=== PATIENT | female | born 1985 | race Caucasian/White ===

== ENCOUNTER 2020-07-28 21:24 | Emergency (ER) | payer BC, OTHER ==
[~2020-07-28] VITALS: Ht 165.1 cm; Wt 71.8 kg
--- NOTE | 2020-07-28 21:38 | PHYS DOC ---
Past History Past Medical History: No Pertinent History, Anemia Past Medical History History of dysfunctional uterine bleeding Past Surgical History: No Surgical History Alcohol Use: None Drug Use: None General Adult EDM: Chief Complaint: Palpitations HPI: HPI: "..I ve been having palpitations..and rapid heart rate tonight...some chest discomfort..." Patient is a 35 year old female who presents with above hx and complaints of Tachycardia with chest discomfort. Patient denies any excessive caffeine use. No excessive use of [id number]-[id number] decongestants. No history of illicit drug use. No history of previous cardiac disorder. Patient states symptoms really more persistent tonight but did have some symptoms yesterday. Patient has had a past history of anemia and dysfunctional uterine bleeding. No recent travel. No specific ill contacts. No history immunosuppression. Patient has 2 term 2. Patient normally presents to the ED for her health care. There is a history of coagulopathy with her family members. Poorly mother had problems with prolonged beat bleeding with surgeries and dental procedures. Patient denies any use of [id number]-emj-[id number] supplements or health teas. Patient was noted to have sinus tachycardia on monitor 1 20-1 30s upon being placed in the room. No history of hypothyroidism. Review of Systems: Review of Systems: Constitutional: Denies fever or chills Eyes: Denies change in visual acuity HENT: Denies nasal congestion or sore throat Respiratory: Denies cough or shortness of breath Cardiovascular: Complaints of chest discomfort and tachycardia GI: Denies abdominal pain, nausea, vomiting, bloody stools or diarrhea : Denies dysuria Musculoskeletal: Denies back pain or joint pain Integument: Denies rash Neurologic: Denies headache, focal weakness or sensory changes Endocrine: Denies polyuria or polydipsia Lymphatic: Denies swollen glands Psychiatric: Denies depression or anxiety Family History: Family History: Coagulopathy with mother etiology unclear Current Medications: Current Meds: See nursing for home meds Allergies: Allergies: Allergies Coded Allergies Type Severity Reaction Last Updated Verified shellfish derived Allergy Intermediate Hives 07/02/15 Yes shrimp Allergy Intermediate Hives 07/02/15 Yes Physical Exam: PE: Constitutional: Moderate acute distress, non-toxic appearance. [] HENT: Normocephalic, atraumatic, bilateral external ears normal, oropharynx moist, no oral exudates, nose normal. [] Eyes: PERRLA, EOMI, conjunctiva pale, no discharge. [] Neck: Normal range of motion, no tenderness, supple, no stridor. [] Cardiovascular: Tachycardia heart rate regular rhythm, no murmur [. The bedside monitor shows a sinus rhythm no obvious ectopy Lungs & Thorax: Bilateral breath sounds equal at apex auscultation [] Abdomen: Bowel sounds normal, soft, no tenderness, no masses, no pulsatile masses. [] Skin: Warm, dry, no erythema, no rash. [] Pale Back: No tenderness, no CVA tenderness. [] Extremities: No tenderness, no cyanosis, no clubbing, ROM intact, no edema. No cording appreciated Neurologic: Alert and oriented X 3, normal motor function, normal sensory function, no focal deficits noted. [] Psychologic: Affect anxious, judgement normal, mood normal. [] EKG: EKG: My interpretation of EKG shows a sinus tachycardia 118 bpm. No findings of acute STEMI with contralateral changes. At 2133 hrs. My interpretation of second EKG at 0317 hrs. shows a sinus tachycardia 100 bpm. No acute morphology changes. Overall morphology is similar to prior EKG above. Radiology/Procedures: Radiology/Procedures: Pt. refuses CXR[] Heart Score: C/O Chest Pain: Yes HEART Score for Chest Pain: HEART Score for Chest Pain Response (Comments) Value History Slighlty/Non-Suspicious 0 ECG Normal 0 Age < 45 0 Risk Factors 1 or 2 Risk Factors 1 Troponin < Normal Limit 0 Total 1 Risk Factors: Risk Factors: DM, Current or recent (<one month) smoker, HTN, HLP, family history of CAD, obesity. Risk Scores: Score 0 - 3: 2.5% MACE over next 6 weeks - Discharge Home Score 4 - 6: 20.3% MACE over next 6 weeks - Admit for Clinical Observation Score 7 - 10: 72.7% MACE over next 6 weeks - Early Invasive Strategies Course & Med Decision Making: Course & Med Decision Making Pertinent Labs and Imaging studies reviewed. (See chart for details) Patient's magnesium and potassium supplement while in ED. Patient to push intake of high potassium foods. Patient to follow-up with primary care. Recommend recheck of potassium levels. May need further evaluation with urinary excretion or etiology of the low potassium and magnesium found here today. Patient to avoid caffeine products. Patient return if any concerns. Follow up elevated Glucose level and anemia. Follow-up pending labs. Push fluids. Impression: 1. Tachycardia 2. Critically low hypokalemia 2.9 3. Hypomagnesia 1.6 4. Normocytic anemia 11.5 5. Elevated glucose 231 [] Dragon Disclaimer: Dragon Disclaimer: This electronic medical record was generated, in whole or in part, using a voice recognition dictation system. Departure Departure: Referrals: PCP,NO (PCP) Dragon Disclaimer This chart was dictated in whole or in part using Voice Recognition software in a busy, high-work load, and often noisy Emergency Department environment. It may contain unintended and wholly unrecognized errors or omissions. Dragon Disclaimer This chart was dictated in whole or in part using Voice Recognition software in a busy, high-work load, and often noisy Emergency Department environment. It may contain unintended and wholly unrecognized errors or omissions. Dragon Disclaimer This chart was dictated in whole or in part using Voice Recognition software in a busy, high-work load, and often noisy Emergency Department environment. It may contain unintended and wholly unrecognized errors or omissions. ROSANA RIZO MD July 28, 2020 21:38
[2020-07-28 21:40] VITALS: BP 109/85
[2020-07-28] MEDS ORDERED: ASPIRIN CHEWABLE 81 MG TABLET. PO ONE (21:45)
[2020-07-28] MEDS ORDERED: IV RINGERS SOLUTION,LACTATED 1,000 ML IV SCH (21:45)
[2020-07-28] MEDS ORDERED: ASPIRIN CHEWABLE 81 MG TABLET. ONE (21:46)
[2020-07-28 22:29] LABS: BASO % 0 % (0-3); EOS % 1 % (0-3); HEMATOCRIT 34.2 % (36.0-47.0); HEMOGLOBIN 11.5 g/dL (12.0-15.5); LYMPH # 2.6 x10^3/uL (1.0-4.8); LYMPH % 31 % (24-48); MEAN CORPUSCULAR HEMOGLOBIN 28 pg (25-35); MEAN CORPUSCULAR HGB CONC 34 g/dL (31-37); MEAN CORPUSCULAR VOLUME 83 fL (79-100); MONO # 0.7 x10^3/uL (0.0-1.1); MONO % 8 % (0-9); NEUT # 4.9 x10^3uL (1.8-7.7); NEUT % 60 % (31-73); PLATELET COUNT 268 x10^3/uL (140-400); RED BLOOD COUNT 4.11 x10^6/uL (3.50-5.40); RED CELL DISTRIBUTION WIDTH 13.1 % (11.5-14.5); WHITE BLOOD COUNT 8.3 x10^3/uL (4.0-11.0)
[2020-07-28 22:50] LABS: BILIRUBIN,URINE NEG (NEG); CLARITY,URINE CLEAR; COLOR,URINE YELLOW; GLUCOSE,URINE 250 mg/dL (NEG)
[2020-07-28 22:51] LABS: BACTERIA,URINE FEW /HPF (0-FEW); NITRITE,URINE NEG (NEG); RBC,URINE OCC /HPF (0-2); SQUAMOUS EPITHELIAL CELL,UR FEW /LPF; UROBILINOGEN,URINE 0.2 mg/dL (0.2 mg/dL); WBC,URINE 0 /HPF (0-4)
[2020-07-28 22:54] LABS: BARBITURATES NEG (NEG); BENZODIAZEPINES NEG (NEG); CANNABINOIDS NEG (NEG); COCAINE NEG (NEG); METHADONE NEG (NEG); OPIATES NEG (NEG); PHENCYCLIDINE NEG (NEG)
[2020-07-28 23:06] LABS: ALBUMIN 4.1 g/dL (3.4-5.0); CALCIUM 8.7 mg/dL (8.5-10.1); DIRECT BILIRUBIN 0.1 mg/dL (0.0-0.2); GFR 63.1; MAGNESIUM 1.6 mg/dL (1.8-2.4); TOTAL BILIRUBIN 0.3 mg/dL (0.2-1.0); TOTAL PROTEIN 7.2 g/dL (6.4-8.2)
[2020-07-28 23:13] LABS: AMPHETAMINE/METHAMPHETAMINE NEG (NEG)
[2020-07-28 23:17] LABS: POTASSIUM 2.9 mmol/L (3.5-5.1)
[2020-07-28] MEDS ORDERED: MAGNESIUM SULFATE 2GM 50 ML IV ONE (23:30)
[2020-07-28] MEDS ORDERED: POTASSIUM CHLORIDE 20 MEQ TABLET.ER. PO ONE (23:30)
[2020-07-28] MEDS: POTASSIUM CHLORIDE 20MEQ 100 ML IV SCH (23:34)
[2020-07-29] MEDS: POTASSIUM CHLORIDE 20MEQ 100 ML IV SCH (01:26)
--- NOTE | 2020-07-29 03:10 | EKG ---
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
--- NOTE | 2020-07-29 03:34 | EKG ---
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
[2020-07-29 10:30] LABS: THYROID STIM HORMONE (TSH) 4.573 uIU/mL (0.358-3.740)
== END 2020-07-29 03:21 | disposition home or self-care (01) ==
LOC: ER 21:24
DX: R00.0 Tachycardia, unspecified (principal); E87.6 Hypokalemia; E83.42 Hypomagnesemia; D64.9 Anemia, unspecified; R73.9 Hyperglycemia, unspecified; Z91.013 Allergy to seafood
CPT/HCPCS: 36415; 80048; 80061; 80076; 80307; 81001; 81025; 82550; 83690; 83735; 83880; 84443; 84484; 85025; 85379; 85610; 85730; 93005; 96361; 96365; 96366; 96368; 99285; J3475; J3480; J7120